=== PATIENT | female | born 1950 | race Caucasian/White ===

== ENCOUNTER 2018-06-11 07:08 | Day surgery (SDC) | payer MEDICARE, OTHER ==
[~2018-06-11] VITALS: Ht 160 cm; Wt 63.7 kg
[~2018-06-11 07:08] MED LIST: COLLAGEN; Complete Senio1 EACH PO; ESCI10 PO; GUAI600T33 PO; LOVA40 PO; MELA3; MULVITMIND PO; RANI150 PO; Super B Comple1 EAC2 PO; TUMERIC; TYLECOD3; [UNRECOGNIZED DRUG - OTHER]
== END 2018-06-11 09:25 | disposition home or self-care (01) ==
LOC: ORSCSDS 07:08
PROVIDERS: Surgery
PROC: 0DBK8ZX Excision of Ascending Colon, Via Natural or Artificial Opening Endoscopic, Diagnostic (ICD-10-PCS; principal; 2018-06-11 08:30)
DX: Z12.11 Encounter for screening for malignant neoplasm of colon (principal); Z86.010 Personal history of colon polyps; K63.5 Polyp of colon; E11.9 Type 2 diabetes mellitus without complications; Z87.891 Personal history of nicotine dependence; Z79.899 Other long term (current) drug therapy
CPT/HCPCS: 88305; J7120

== ENCOUNTER 2019-09-20 08:42 | Day surgery (SDC) | payer MEDICARE, OTHER | END 2019-09-20 22:47 | disposition home or self-care (01) | LOC: MOI US 08:42 → MOI MAM 09:00 → MOI US 09:00 | DX: C50.912 Malignant neoplasm of unspecified site of left female breast (principal); Z17.0 Estrogen receptor positive status [ER+] | CPT/HCPCS: 19083; 77065; 88305; 88360; A4648 ==

== ENCOUNTER 2019-10-04 08:26 | Day surgery (SDC) | payer MEDICARE, OTHER | END 2019-10-04 22:55 | disposition home or self-care (01) | LOC: MOI US 08:26 | DX: C50.912 Malignant neoplasm of unspecified site of left female breast (principal) | CPT/HCPCS: 19285; 76882; 77065 ==

== ENCOUNTER 2019-10-08 08:16 | Day surgery (SDC) | payer MEDICARE, OTHER ==
[~2019-10-08] VITALS: Ht 160 cm; Wt 65.0 kg
--- NOTE | 2019-10-08 11:34 | NUR ---
TO TO [facility]. AGREES WITH PLANNED SURGERY. RADIOLOGY HERE HERE FOR BREAST INJECTION. REPORT GIVEN TO CORY SCHERER RN.
--- NOTE | 2019-10-08 15:12 | NUR ---
IV REMOVED AT 1410, WNL. Patient up to Ambulate independently. Gait steady. Discharge instructions reviewed with patient. Patient verbalizes understanding. Copy given to patient to take home. BREAST BINDER IN PLACE.PT STATES SHE HAS ICE PACKS AT HOME. Discharged via wheelchair to private car for ride home WITH DAUGHTER.
--- NOTE | 2019-10-11 07:31 | NUR ---
10/11/19 0731 Beryl Segal VERIFICATIONS: EDIT CHART.
== END 2019-10-08 22:39 | disposition home or self-care (01) ==
LOC: RAD 08:16 → ORSCMMR 08:16 → NM 09:00 → ORD 10:15 → RAD 22:39
DX: C50.212 Malignant neoplasm of upper-inner quadrant of left female breast (principal); Z79.899 Other long term (current) drug therapy; Z88.8 Allergy status to other drugs, medicaments and biological substances; Z88.6 Allergy status to analgesic agent; Z88.5 Allergy status to narcotic agent; Z17.0 Estrogen receptor positive status [ER+]
CPT/HCPCS: 38792; 76098; 82947; 88307; 88342; A9520; J0690; J1100; J2250; J2405; J2704; J3010; J7120; Q9968

== ENCOUNTER → 2021-09-10 | Outpatient (CLI) | payer MEDICARE, OTHER | END | disposition home or self-care (01) | LOC: LAB SHORT 07:40 | DX: L82.1 Other seborrheic keratosis (principal) | CPT/HCPCS: 88305 ==

== ENCOUNTER 2022-01-18 07:15 | Day surgery (SDC) | payer MEDICARE ==
[2022-01-21] MEDS ORDERED: MAGNESIUM OXID500 MG PO (14:43)
== END 2022-01-18 23:16 | disposition home or self-care (01) ==
LOC: MOI MAM 07:15
DX: C50.412 Malignant neoplasm of upper-outer quadrant of left female breast (principal)
CPT/HCPCS: 19285; 77065; A4648

== ENCOUNTER 2022-01-24 07:12 | Day surgery (SDC) | payer MEDICARE ==
[~2022-01-24] VITALS: Ht 160 cm; Wt 70.1 kg
[~2022-01-24 07:12] MED LIST changes: +MAGNESIUM OXID500 MG PO
--- NOTE | 2022-01-24 08:29 | NUR ---
Ambulatory in Day Surgery History, Chart, Medications and Allergies reviewed before start of procedure.Pre-Op teaching done. Pt verbalizes understanding. Patient States Post-Procedure ride home has been arranged.
--- NOTE | 2022-01-24 11:00 | NUR ---
Patient up to Ambulate independently. Gait steady. Discharge instructions reviewed with patient. Patient verbalizes understanding. Copy given to patient to take home, [facility]. Patient States Post-Procedure ride home has been arranged. Discharged via wheelchair to private car for ride home.
== END 2022-01-24 11:00 | disposition home or self-care (01) ==
LOC: ORSCMMR 07:12 → ORD 08:30 → ORSCMMR 11:00
PROVIDERS: Surgery
PROC: 0HBU0ZZ Excision of Left Breast, Open Approach (ICD-10-PCS; principal; 2022-01-24 08:30)
DX: C50.412 Malignant neoplasm of upper-outer quadrant of left female breast (principal); Z17.0 Estrogen receptor positive status [ER+]; E11.9 Type 2 diabetes mellitus without complications; K21.9 Gastro-esophageal reflux disease without esophagitis; E78.5 Hyperlipidemia, unspecified; Z79.899 Other long term (current) drug therapy; Z87.891 Personal history of nicotine dependence
CPT/HCPCS: 76098; 82947; 88307; J0690; J1100; J1885; J2250; J2405; J2704; J2795; J3010; J7120

== ENCOUNTER 2023-10-09 07:44 | Day surgery (SDC) | payer MEDICARE ==
[~2023-10-09] VITALS: Ht 160 cm; Wt 69.6 kg
[~2023-10-09 07:44] MED LIST changes: +Balanced Salt Epinephrine Irrigation Solution 500 mL IR SCH; +Celexa20 MG PO; +Lidocaine HCl/Pf 1% 5 ML VIAL ONE; +Lidocaine HCl/Pf 1% 5 ML VIAL XX SCH; +Moxifloxacin HCL 0.5 MG/0.1 ML 0.4MLSYR RIGHTEYE SCH; +NS 500 ML IV ONE; +PHENYLEPHRINE\\TROPICAMIDE\\TETRACAINE OPHTHALMIC DILATING SOLN RIGHTEYE PRN; +Povidone-Iodine 450 DROP/30 ML Solution ONE; +Povidone-Iodine 450 DROP/30 ML Solution RIGHTEYE SCH; +Triamcinolone Inj Susp 40 MG / ML 1ML Vial INJ SCH; +Triamcinolone Inj Susp 40 MG / ML 1ML Vial ONE
[2023-10-09] MEDS ORDERED: OMEP20ER (08:19)
[2023-10-09] MEDS ORDERED: NS 1,000 ML IV ONE (08:30)
[2023-10-09] MEDS ORDERED: Midazolam HCl 1MG / ML 2ML Vial ONE (08:51)
[2023-10-09] MEDS ORDERED: Ondansetron HCl 2 MG / ML 2ML Vial ONE (09:02)
[2023-10-09] MEDS ORDERED: Dexamethasone Sod Phos 10 MG/ML 1ML VIAL ONE (09:02)
[2023-10-09] MEDS ORDERED: Tetracaine HCl 0.5% Opth Soln 15 ml RIGHTEYE ONE (09:03)
[2023-10-09 09:45] VITALS: BP 115/71
== END 2023-10-09 09:43 | disposition home or self-care (01) ==
LOC: ORSCSDS 07:44
PROVIDERS: Ophthalmology
PROC: 08RJ3JZ Replacement of Right Lens with Synthetic Substitute, Percutaneous Approach (ICD-10-PCS; principal; 2023-10-09 09:00)
DX: E11.36 Type 2 diabetes mellitus with diabetic cataract (principal); H25.13 Age-related nuclear cataract, bilateral; Z87.891 Personal history of nicotine dependence; K22.70 Barrett's esophagus without dysplasia; K21.9 Gastro-esophageal reflux disease without esophagitis; Z79.899 Other long term (current) drug therapy
CPT/HCPCS: J1100; J2001; J2250; J2405; J3301; J7040; V2632

== ENCOUNTER 2023-10-14 07:39 | Day surgery (SDC) | payer MEDICARE ==
[~2023-10-14] VITALS: Ht 160 cm; Wt 69.4 kg
[~2023-10-14 07:39] MED LIST changes: +Moxifloxacin HCL 0.5 MG/0.1 ML 0.4MLSYR LEFTEYE SCH; -Moxifloxacin HCL 0.5 MG/0.1 ML 0.4MLSYR RIGHTEYE SCH; +OMEP20ER; +PHENYLEPHRINE\\TROPICAMIDE\\TETRACAINE OPHTHALMIC DILATING SOLN LEFTEYE PRN; -PHENYLEPHRINE\\TROPICAMIDE\\TETRACAINE OPHTHALMIC DILATING SOLN RIGHTEYE PRN; +Povidone-Iodine 450 DROP/30 ML Solution LEFTEYE SCH; -Povidone-Iodine 450 DROP/30 ML Solution ONE; -Povidone-Iodine 450 DROP/30 ML Solution RIGHTEYE SCH
[2023-10-14] MEDS ORDERED: NS 500 ML IV ONE (08:06)
--- NOTE | 2023-10-14 08:06 | NUR ---
10/14/23 0806 Price Davies CALL LIGHT WITHIN REACH.
[2023-10-14] MEDS ORDERED: Midazolam HCl 1MG / ML 2ML Vial ONE ×2 (08:30→08:53)
[2023-10-14] MEDS ORDERED: Tetracaine HCl 0.5% Opth Soln 15 ml XX ONE (08:45)
[2023-10-14] MEDS ORDERED: Dexamethasone Sod Phos 10 MG/ML 1ML VIAL ONE (08:48)
[2023-10-14 09:19] VITALS: BP 118/60
== END 2023-10-14 09:20 | disposition home or self-care (01) ==
LOC: ORSCSDS 07:39
PROVIDERS: Ophthalmology
PROC: 08RK3JZ Replacement of Left Lens with Synthetic Substitute, Percutaneous Approach (ICD-10-PCS; principal; 2023-10-14 09:00)
DX: E11.36 Type 2 diabetes mellitus with diabetic cataract (principal); H25.812 Combined forms of age-related cataract, left eye; Z96.1 Presence of intraocular lens; F32.A Depression, unspecified; K21.9 Gastro-esophageal reflux disease without esophagitis; K22.70 Barrett's esophagus without dysplasia; E78.5 Hyperlipidemia, unspecified; Z79.899 Other long term (current) drug therapy; Z87.891 Personal history of nicotine dependence
CPT/HCPCS: J1100; J2001; J2250; J3301; J7040; V2632